=== PATIENT | male | born 1980 | race Caucasian/White ===

== ENCOUNTER 2016-05-14 08:45 | Outpatient (RCR) | payer MEDICAID ==
[~2016-05-14 08:45] MED LIST: AMBI5TAB PO; ETOD400T PO; TIZA4CAP3 PO; TOPA100T8 PO; TOPA50TA7 PO
== END 2016-05-20 | disposition home or self-care (01) ==
LOC: M OUTALCOH 08:45
PROVIDERS: ATTEND Psychiatry & Neurology Psychiatry
DX: F12.20 Cannabis dependence, uncomplicated (principal)

== ENCOUNTER 2016-06-16 10:00 | Outpatient (RCR) | payer MEDICAID | END 2016-06-17 | LOC: M OUTALCOH 10:00 | PROVIDERS: ATTEND Psychiatry & Neurology Psychiatry | DX: F12.20 Cannabis dependence, uncomplicated (principal) ==

== ENCOUNTER → 2016-06-20 | Outpatient (CLI) | payer OTHER ==
--- NOTE | 2016-06-20 14:57 | REP ---
MR LUMBAR SPINE WITHOUT CONTRAST: HISTORY: Back pain. COMPARISON: 05/24/2012 Decreased signal intensity on T2-weighted images is present in the L4-5 and L5-S1 intervertebral discs. This represent disc degeneration. There is no disc bulge or herniation at the L1-2 level. The L1 nerves exit the neural foramina without compression. A diffuse disc bulge is present at the L2-3 level. There is minimal compression of the thecal sac. The L2 nerves exit the neural foramina without compression. A diffuse disc bulge is present at the L3-4 level. There is minimal compression of the thecal sac. The L3 nerves exit the neural foramina without compression. A diffuse disc bulge is present at the L4-5 level. There is hypertrophy of the ligamenta flava and posterior articulating facets. These findings produce mild central canal stenosis. There is compression of the right L4 nerve in the neural foramen. The left L4 nerve exits the neural foramen without compression. A diffuse disc bulge is present at the L5-S1 level. There is minimal compression of the thecal sac. There is hypertrophy of the posterior articulating facets. The L5 nerves exit the neural foraminal without compression. The conus medullaris normal in appearance terminating at the level of the T12-L1 intervertebral disc. Normal signal intensity is present in the lumbar vertebral bodies. IMPRESSION: 1. Diffuse disc bulges at the L2-3, L3-4 and L5-S1 levels with minimal thecal sac compression. 2. Mild central canal stenosis at the L4-5 level secondary to disc bulge, ligamentous and facet hypertrophy. There is compression of the right L4 nerve in the neural foramen. These are new findings. Signed by Matt Pearson MD 06/20/2016 02:59 P
== END ==
LOC: M RAD 12:48
PROVIDERS: ATTEND Physician Assistant Medical
DX: M51.06 Intervertebral disc disorders with myelopathy, lumbar region (principal); M48.06 Spinal stenosis, lumbar region

== ENCOUNTER → 2016-07-18 | Outpatient (RCR) | payer OTHER | LOC: M OUTALCOH 06-26 10:01 | PROVIDERS: ATTEND Psychiatry & Neurology Psychiatry | DX: F12.20 Cannabis dependence, uncomplicated (principal) ==

== ENCOUNTER 2016-08-05 20:53 | Emergency (ER) | payer MEDICAID ==
[~2016-08-05] VITALS: Ht 182.9 cm; Wt 82.6 kg
[2016-08-05] MEDS ORDERED: TRAZ100T4 PO (21:19)
[2016-08-05] MEDS ORDERED: ROBA500T PO (23:14)
[2016-08-05] MEDS ORDERED: IBUP600T26 PO (23:14)
[2016-08-05] MEDS ORDERED: NORCO 5/325MG TABLET (BULK FOR ED) PO ONE (23:15)
[2016-08-05] MEDS ORDERED: IBUPROFEN 800 MG TAB PO ONE (23:15)
[2016-08-05] MEDS ORDERED: METHOCARBAMOL 500 MG TAB PO ONE (23:15)
[2016-08-05 23:32] VITALS: BP 138/65
== END 2016-08-05 23:36 | disposition home or self-care (01) ==
LOC: M ED 22:11
DX: S39.012A Strain of muscle, fascia and tendon of lower back, initial encounter (principal); W19.XXXA Unspecified fall, initial encounter; Y92.89 Other specified places as the place of occurrence of the external cause; Y93.89 Activity, other specified; Y99.8 Other external cause status; F17.210 Nicotine dependence, cigarettes, uncomplicated

== ENCOUNTER 2016-08-12 08:43 | Emergency (ER) | payer MEDICAID, OTHER ==
[~2016-08-12] VITALS: Ht 182.9 cm; Wt 84.8 kg
[~2016-08-12 08:43] MED LIST changes: +IBUP600T26 PO; +ROBA500T PO; +TRAZ100T4 PO
[2016-08-12] MEDS ORDERED: MORPHINE 4 MG/ML 1ML SYRINGE IV PRN (10:30)
[2016-08-12] MEDS ORDERED: NS 1,000 ML IV ONE (10:30)
[2016-08-12 11:08] LABS: ALBUMIN 4.1 GM/DL (3.2-5.2); ALBUMIN/GLOBULIN RATIO 1.11 (1.00-1.93); ALKALINE PHOSPHATASE 83 U/L (45-117); ALT/SGPT 20 U/L (12-78); ANION GAP 6 MEQ/L (8-16); AST/SGOT 19 U/L (15-37); BILIRUBIN,DIRECT < 0.1 MG/DL (0.0-0.2); BILIRUBIN,TOTAL 0.4 MG/DL (0.2-1.0); BLOOD UREA NITROGEN 11 MG/DL (7-18); CALCIUM LEVEL 9.2 MG/DL (8.5-10.1); CARBON DIOXIDE LEVEL 30 MEQ/L (21-32); CHLORIDE LEVEL 103 MEQ/L (98-107); CREATININE FOR GFR 0.85 MG/DL (0.70-1.30); GLOMERULAR FILTRATION RATE > 60.0 (>60); GLUCOSE, FASTING 74 MG/DL (70-105); POTASSIUM SERUM 4.3 MEQ/L (3.5-5.1); SODIUM LEVEL 139 MEQ/L (136-145); TOTAL PROTEIN 7.8 GM/DL (6.4-8.2)
[2016-08-12 11:11] LABS: BASO % 0.5 % (0.0-1.0); EOS # 0.1 K/mm3 (0.0-0.50); EOS % 1.5 % (0.0-3.0); LARGE UNSTAINED CELL # 0.2 K/mm3 (0.0-0.4); LARGE UNSTAINED CELL % 1.9 % (0.0-4.0); LYMPH # 2.3 K/mm3 (1.5-4.5); LYMPH % 22.3 % (24.0-44.0); MEAN CORPUSCULAR HEMOGLOBIN 30.2 pg (27.0-33.0); MEAN CORPUSCULAR HGB CONC 33.8 g/dl (32.0-36.5); MEAN CORPUSCULAR VOLUME 89.3 fl (80.0-96.0); MONO # 0.7 K/mm3 (0.0-0.8); MONO % 7.6 % (0.0-5.0); NEUTROPHILS # 6.3 K/mm3 (1.8-7.7); NEUTROPHILS % 66.3 % (36.0-66.0); PLATELET COUNT, AUTOMATED 274 k/mm3 (150-450); RED CELL DISTRIBUTION WIDTH 12.4 % (11.5-14.5); WHITE BLOOD COUNT 9.5 K/mm3 (4.0-10.0)
[2016-08-12 12:44] VITALS: BP 131/82
[2016-08-12] MEDS ORDERED: KETOROLAC 30 MG/ML VIAL (J1885) IV ONE (13:15)
--- NOTE | 2016-08-12 13:32 | REP ---
CT ABDOMEN AND PELVIS WITHOUT CONTRAST: CT abdomen and pelvis performed without oral or IV contrast. Sagittal and coronal reconstruction images are performed. Visualized lung bases are clear. The liver, gallbladder, spleen, adrenals and pancreas are unremarkable. A 3 mm calculus is seen in the right renal collecting system mid aspect. There appears to be a small cyst of the mid left kidney. There is no hydroureteronephrosis. There is no abdominal aortic aneurysm. There is no adenopathy. There is no free air or free fluid. There is no evidence of appendicitis. No definite bowel wall thickening is seen. IMPRESSION: Small intrarenal calculus right kidney 3 mm in diameter. No ureteral calculi or hydronephrosis. Signed by Basim Plunkett MD 08/12/2016 05:26 P
== END 2016-08-12 13:50 | disposition home or self-care (01) ==
LOC: M ED 12:05
DX: R10.32 Left lower quadrant pain (principal); F17.200 Nicotine dependence, unspecified, uncomplicated; Z87.442 Personal history of urinary calculi; Z79.899 Other long term (current) drug therapy

== ENCOUNTER 2016-08-15 08:45 | Outpatient (RCR) | payer MEDICAID | END 2016-08-17 | LOC: M OUTALCOH 08:45 | PROVIDERS: ATTEND Psychiatry & Neurology Psychiatry | DX: F12.20 Cannabis dependence, uncomplicated (principal) ==

== ENCOUNTER 2016-09-10 15:00 | Outpatient (RCR) | payer OTHER | END 2016-09-17 | LOC: M OUTALCOH 15:00 | PROVIDERS: ATTEND Psychiatry & Neurology Psychiatry | DX: F12.20 Cannabis dependence, uncomplicated (principal) ==

== ENCOUNTER 2016-10-15 15:00 | Outpatient (RCR) | payer OTHER ==
[~2016-10-15 15:00] MED LIST changes: +IBUP-1022 PO; -IBUP600T26 PO; +TOPA100T12 PO; -TOPA100T8 PO; -TOPA50TA7 PO; +TOPA50TA8 PO; +TRAZ-136 PO; -TRAZ100T4 PO
== END 2016-10-17 ==
LOC: M OUTALCOH 15:00
PROVIDERS: ATTEND Psychiatry & Neurology Psychiatry
DX: F12.20 Cannabis dependence, uncomplicated (principal)

== ENCOUNTER 2016-11-10 13:00 | Outpatient (RCR) | payer MEDICAID | END 2016-11-17 | LOC: M OUTALCOH 13:00 | PROVIDERS: ATTEND Psychiatry & Neurology Psychiatry | DX: F12.20 Cannabis dependence, uncomplicated (principal) ==

== ENCOUNTER 2016-12-15 10:00 | Outpatient (RCR) | payer MEDICAID, SELFPAY | END 2016-12-18 | LOC: M OUTALCOH 10:00 | PROVIDERS: ATTEND Psychiatry & Neurology Psychiatry | DX: F12.20 Cannabis dependence, uncomplicated (principal) ==

== ENCOUNTER 2017-01-12 13:00 | Outpatient (RCR) | payer MEDICAID, SELFPAY | END 2017-01-17 | LOC: M OUTALCOH 13:00 | PROVIDERS: ATTEND Psychiatry & Neurology Psychiatry | DX: F12.20 Cannabis dependence, uncomplicated (principal) ==

== ENCOUNTER 2017-01-20 14:35 | Outpatient (RCR) | payer MEDICAID, SELFPAY | END 2017-02-17 | LOC: M OUTALCOH 14:35 | PROVIDERS: ATTEND Psychiatry & Neurology Psychiatry | DX: F12.20 Cannabis dependence, uncomplicated (principal) ==

== ENCOUNTER 2017-11-20 23:51 | Emergency (ER) | payer OTHER, MEDICAID ==
[2017-11-21] MEDS: KETOROLAC 60 MG/2 ML VIAL (J1885) IM (04:32)
== END 2017-11-21 04:40 | disposition home or self-care (01) ==
LOC: M ED 23:51
DX: S50.11XA Contusion of right forearm, initial encounter (principal); W08.XXXA Fall from other furniture, initial encounter; Y92.89 Other specified places as the place of occurrence of the external cause; Z87.442 Personal history of urinary calculi
CPT/HCPCS: J1885

== ENCOUNTER 2017-12-25 16:17 | Emergency (ER) | payer OTHER ==
[2017-12-25 18:46] LABS: BASO % 0.4 % (0.0-1.0); EOS # 0.1 10^3/uL (0.0-0.50); EOS % 1.8 % (0.0-3.0); HEMATOCRIT 43.6 % (42.0-52.0); HEMOGLOBIN 14.5 g/dl (13.5-17.5); IMMATURE GRANULOCYTE % 0.1 % (0-3.0); LYMPH # 2.2 10^3/uL (1.5-4.5); LYMPH % 30.4 % (24.0-44.0); MEAN CORPUSCULAR HEMOGLOBIN 29.7 pg (27.0-33.0); MEAN CORPUSCULAR HGB CONC 33.3 g/dl (32.0-36.5); MEAN CORPUSCULAR VOLUME 89.2 fl (80.0-96.0); MONO # 0.6 10^3/uL (0.0-0.8); MONO % 7.9 % (0.0-5.0); NEUTROPHILS # 4.3 10^3/uL (1.8-7.7); NEUTROPHILS % 59.4 % (36.0-66.0); PLATELET COUNT, AUTOMATED 274 10^3/uL (150-450); RED BLOOD COUNT 4.89 10^6/uL (4.30-6.10); RED CELL DISTRIBUTION WIDTH 13.2 % (11.5-14.5); WHITE BLOOD COUNT 7.2 10^3/uL (4.0-10.0)
[2017-12-25 19:02] LABS: ANION GAP 9 MEQ/L (8-16); BLOOD UREA NITROGEN 12 MG/DL (7-18); C REACTIVE PROTEIN QUANTITATIV 0.39 MG/DL (0.00-0.30); CARBON DIOXIDE LEVEL 30 MEQ/L (21-32); CHLORIDE LEVEL 104 MEQ/L (98-107); CREATININE FOR GFR 0.74 MG/DL (0.70-1.30); GLOMERULAR FILTRATION RATE > 60.0 (>60); GLUCOSE, FASTING 79 MG/DL (70-100); SODIUM LEVEL 143 MEQ/L (136-145)
[2017-12-25 19:04] LABS: ERYTHROCYTE SEDIMENTATION RATE 5 mm/hr (0-15)
== END 2017-12-25 21:28 | disposition home or self-care (01) ==
LOC: M ED 16:17
DX: L03.011 Cellulitis of right finger (principal); M54.9 Dorsalgia, unspecified; Z87.442 Personal history of urinary calculi; F17.210 Nicotine dependence, cigarettes, uncomplicated; Z79.899 Other long term (current) drug therapy
CPT/HCPCS: 80048

== ENCOUNTER 2017-12-28 15:50 | Emergency (ER) | payer OTHER ==
[2017-12-28] MEDS: LIDOCAINE 1% MDV 20ML VIAL SC (17:36)
[2017-12-28 17:51] LABS: HEMATOCRIT 45.3 % (42.0-52.0); HEMOGLOBIN 15.1 g/dl (13.5-17.5); MEAN CORPUSCULAR HEMOGLOBIN 30.1 pg (27.0-33.0); MEAN CORPUSCULAR HGB CONC 33.3 g/dl (32.0-36.5); MEAN CORPUSCULAR VOLUME 90.2 fl (80.0-96.0); PLATELET COUNT, AUTOMATED 280 10^3/uL (150-450); RED BLOOD COUNT 5.02 10^6/uL (4.30-6.10); RED CELL DISTRIBUTION WIDTH 13.3 % (11.5-14.5); WHITE BLOOD COUNT 6.8 10^3/uL (4.0-10.0)
[2017-12-28 18:12] LABS: C REACTIVE PROTEIN QUANTITATIV 0.38 MG/DL (0.00-0.30)
[2017-12-28 18:39] LABS: ERYTHROCYTE SEDIMENTATION RATE 4 mm/hr (0-15)
== END 2017-12-28 18:30 | disposition home or self-care (01) ==
LOC: M ED 15:50
DX: S60.414A Abrasion of right ring finger, initial encounter (principal); F17.200 Nicotine dependence, unspecified, uncomplicated
CPT/HCPCS: 86140

== ENCOUNTER 2018-09-26 10:22 | Emergency (ER) | payer OTHER ==
[~2018-09-26] VITALS: Ht 182.9 cm; Wt 79.5 kg
[~2018-09-26 10:22] MED LIST changes: +DOXY-350 PO; +KEFL500C17 PO; +TIZA4CAP PO; -TIZA4CAP3 PO; -TRAZ-136 PO; +TRAZ-163 PO; +TRAZ1TAB14 PO
[2018-09-26 10:23] VITALS: BP 134/83
[2018-09-26] MEDS ORDERED: AUGM875T28 PO (11:03)
== END 2018-09-26 11:05 | disposition home or self-care (01) ==
LOC: M ED 10:22
DX: K04.7 Periapical abscess without sinus (principal); K02.9 Dental caries, unspecified; K13.79 Other lesions of oral mucosa; Z87.442 Personal history of urinary calculi; Z72.0 Tobacco use

== ENCOUNTER 2019-11-30 14:35 | Emergency (ER) | payer OTHER ==
[~2019-11-30 14:35] MED LIST changes: +AUGM875T28 PO; +KETOROLAC 60MG 2ML VIAL As Ordered ONE; +KETOROLAC 60MG 2ML VIAL ONE; -TRAZ-163 PO; +TRAZ-257 PO
== END 2019-11-30 14:55 | disposition home or self-care (01) ==
LOC: M ED 14:35
DX: S43.51XA Sprain of right acromioclavicular joint, initial encounter (principal); X50.1XXA Overexertion from prolonged static or awkward postures, initial encounter; Y92.098 Other place in other non-institutional residence as the place of occurrence of the external cause; Y93.H3 Activity, building and construction; M51.9 Unspecified thoracic, thoracolumbar and lumbosacral intervertebral disc disorder; E84.9 Cystic fibrosis, unspecified; M19.90 Unspecified osteoarthritis, unspecified site; Z87.891 Personal history of nicotine dependence
CPT/HCPCS: 96372; 99283; J1885

== ENCOUNTER 2020-08-01 15:07 | Emergency (ER) | payer OTHER ==
[~2020-08-01] VITALS: Ht 182.9 cm; Wt 80.9 kg
[~2020-08-01 15:07] MED LIST changes: -KETOROLAC 60MG 2ML VIAL As Ordered ONE; -KETOROLAC 60MG 2ML VIAL ONE
--- NOTE | 2020-08-01 15:54 | REP ---
INDICATION: trauma. COMPARISON: Two-view examination of the chest of 05/28/2011 TECHNIQUE: Four views of the left ribs with frontal view of the chest FINDINGS: Multiple views of the left ribs show no fracture or osseous lesion. The accompanying frontal view of the chest no cardiomegaly, infiltrates, effusions, or pneumothoraces. IMPRESSION: Negative left rib series. <Electronically signed by Darryn Rothman > 08/01/20 [id number]
[2020-08-01] MEDS ORDERED: KETOROLAC 60MG 2ML VIAL IM ONE (17:00)
--- NOTE | 2020-08-01 17:36 | REPVR ---
PROCEDURE INFORMATION: Exam: CT Chest Without Contrast; Diagnostic Exam date and time: 08/01/2020 5:13 PM Age: 40 years old Clinical indication: Injury or trauma; Fall; Blunt trauma (contusions or hematomas); Additional info: Decreased breath sounds L, severe ant/lat L rib pain TECHNIQUE: Imaging protocol: Diagnostic computed tomography of the chest without contrast. 3D rendering (Not supervised by radiologist): MIP and/or 3D reconstructed images were created by the technologist. Radiation optimization: All CT scans at this facility use at least one of these dose optimization techniques: automated exposure control; mA and/or kV adjustment per patient size (includes targeted exams where dose is matched to clinical indication); or iterative reconstruction. COMPARISON: CR Ribs uni W-PA CHEST ONLY 08/01/2020 3:18 PM FINDINGS: Limitations: This examination is suboptimal for evaluation of vascular injury given the lack of IV contrast. Lungs: Mild dependent opacities within the lung bases likely atelectasis versus dependent edema. Small areas of air trapping within both posterior lung bases suspicious for small airways disease. No pulmonary consolidation. Mildly prominent reticulonodular markings in the anterolateral aspect of the right upper lobe (images 18 through 29, series 201) consistent with interstitial disease, nonspecific. Pleural spaces: Unremarkable. No pneumothorax. No pleural effusion. Heart: Unremarkable. No cardiomegaly. No pericardial effusion. Aorta: Unremarkable. No aortic aneurysm. Lymph nodes: Unremarkable. No enlarged lymph nodes. Bones/joints: There is a nondisplaced fracture of the anterolateral aspect of the left 4th rib (axial images 50 through 52). No other fracture identified. Minimal degenerative spondylosis of the thoracic spine. Soft tissues: Unremarkable. IMPRESSION: 1. Nondisplaced fracture of the anterolateral aspect of the left 4th rib. 2. Mild dependent lung opacities, likely atelectasis versus edema. 3. Findings suspicious for mild small airways disease. 4. Reticulonodular markings within the anterolateral right upper lobe consistent with interstitial disease, nonspecific. Clinical evaluation is needed. Electronically signed by: Eliot Sarabia On 08/01/2020 17:36:52 PM
[2020-08-01 18:07] VITALS: BP 143/93
== END 2020-08-01 18:09 | disposition home or self-care (01) ==
LOC: M ED 15:07
DX: S22.32XA Fracture of one rib, left side, initial encounter for closed fracture (principal); W18.49XA Other slipping, tripping and stumbling without falling, initial encounter; Y92.009 Unspecified place in unspecified non-institutional (private) residence as the place of occurrence of the external cause; Y93.9 Activity, unspecified; Y99.9 Unspecified external cause status; E84.9 Cystic fibrosis, unspecified; F17.200 Nicotine dependence, unspecified, uncomplicated; Z87.442 Personal history of urinary calculi
CPT/HCPCS: 71101; 71250; 96372; 99283; J1885